=== PATIENT | female | born 1960 | race Caucasian/White ===

== ENCOUNTER 2025-02-08 10:24 | Outpatient (CLI) | payer MEDICARE | END 2025-02-08 10:25 | disposition home or self-care (01) | LOC: SCSMRI 10:24 | PROVIDERS: ATTEND Internal Medicine | DX: M47.26 Other spondylosis with radiculopathy, lumbar region (principal); M47.27 Other spondylosis with radiculopathy, lumbosacral region; Z98.1 Arthrodesis status | CPT/HCPCS: 72148 ==